=== PATIENT | female | born 1980 | race Caucasian/White ===

== ENCOUNTER 2017-04-05 15:01 | Emergency (ER) | payer BC ==
[2017-04-05 15:18] VITALS: BP 127/92; PULSE 97; O2SAT 97
--- NOTE | 2017-04-05 15:57 | ERPHSYRPT ---
- History of Present Illness Time Seen by Provider: 04/05/17 15:20 Source: patient Exam Limitations: clinical condition Patient Subjective Stated Complaint: rt foot pain Triage Nursing Assessment: states had rt cyst removed 11 yrs ago and pain at same stop came back 11 yrs ago. swelling with no redness to rt outer foot. pedal pulse present. no injury Physician History: PATIENT HAS HAD CYST REMOVE FROM OUTER ASPECT OF RIGHT FOOT 11 YEARS AGO, NOW HAS PAIN WITH LOCALIZED SWELLING AT SITE OF PREVIOUS CYST, OVER THE PAST 4-5 DAYS. WORSE UPON WEIGHT BEARING. Method of Injury: unknown Occurred: days ago Quality: constant Severity of Pain-Max: moderate Severity of Pain-Current: moderate Lower Extremities Pain: foot: right Modifying Factors: Improves With: movement Associated Symptoms: unable to bear weight Allergies/Adverse Reactions: naproxen Allergy (Verified 04/05/17 15:18) sumatriptan [From Imitrex] Adverse Reaction (Verified 04/05/17 15:18) Home Medications: No Home Meds 1 ea UD 04/05/17 [History] Hx Tetanus, Diphtheria Vaccination/Date Given: Yes Hx Influenza Vaccination/Date Given: Yes Hx Pneumococcal Vaccination/Date Given: No Immunizations Up to Date: Yes - Review of Systems Constitutional: No Fever, No Chills Eyes: No Symptoms Ears, Nose, & Throat: No Symptoms Respiratory: No Cough, No Dyspnea Cardiac: No Chest Pain, No Edema, No Syncope Abdominal/Gastrointestinal: No Abdominal Pain, No Nausea, No Vomiting, No Diarrhea Genitourinary Symptoms: No Dysuria Musculoskeletal: Joint Pain, No Back Pain, No Neck Pain Skin: Induration, No Rash Neurological: No Dizziness, No Focal Weakness, No Sensory Changes Psychological: No Symptoms Endocrine: No Symptoms All Other Systems: Reviewed and Negative - Past Medical History Pertinent Past Medical History: No - Past Surgical History Past Surgical History: Yes Female Surgical History: Tubal Ligation Other Surgical History: back surgery. rt cyst rt foot. cone bx - Social History Smoking Status: Current every day smoker Exposure to second hand smoke: Yes Drug Use: none Patient Lives Alone: No - Female History Hx Last Menstrual Period: 2 weeks - Nursing Vital Signs Nursing Vital Signs: Initial Vital Signs Temperature 98.2 F Temperature Source Oral Pulse Rate 97 Respiratory Rate 18 Blood Pressure [Right Arm] 127/92 Pain Intensity 5 - Physical Exam General Appearance: no apparent distress Foot Exam: right foot: soft tissue tenderness (8MM X 7MM SCALY LESION RIGHT FOOT PROXIMAL 5TH METATARSAL, MINIMAL SWELLING WITHOUT ERYTHRMA, RIGHT PEDIS PULSE 2+) SpO2: 97 Oxygen Delivery: Room Air Ordered Tests: Active Orders 24 hr Category Date Time Status Crutches STAT Care 04/05/17 15:56 Active FOOT (MINIMUM 3 VIEWS) Stat Exams 04/05/17 15:25 Taken - Progress Progress Note: 04/05/17 16:06 PATIENT FITTED FOR CRUTCHES Counseled pt/family regarding: rad results - Departure Time of Disposition: 16:06 Departure Disposition: Home Clinical Impression: RIGHT FOOT PAIN Condition: Stable Critical Care Time: No Instructions: Foot Fracture Additional Instructions: CALL YOUR [facility] TOMORROW FOR FOLLOWUP APPOINTMENT. AMBULATE USING CRUTCHES NONWEIGHT BEARING RIGHT FOOT FOR 1 WEEK.TYLENOL #3 EVERY 4 HOURS FOR PAIN. Prescriptions: Codeine Phosphate/APAP #3 [Tylenol #3 Tablet] 1 tab PO Q4HPRN PRN #15 tablet PRN Reason: Pain
--- NOTE | 2017-04-05 19:04 | XRAY ---
Indication: Painful cyst. Comparison: None 3 nonweightbearing views of the right foot obtained. No bony, articular, or soft tissue abnormalities.
== END 2017-04-05 16:12 | disposition home or self-care (01) ==
LOC: ED 15:01
DX: M79.671 Pain in right foot (principal)
CPT/HCPCS: 73630; 99283